=== PATIENT | female | born 1995 | race Caucasian/White ===

== ENCOUNTER 2017-02-25 21:59 | Emergency (ER) | payer SELFPAY ==
[~2017-02-25] VITALS: Ht 172.7 cm; Wt 97.0 kg
[2017-02-25 22:05] VITALS: BP 121/85
[2017-02-25] MEDS ORDERED: KETOROLAC 30 MG/1 ML ONE (22:54)
[2017-02-25] MEDS ORDERED: KETOROLAC 30 MG/1 ML IM ONE (23:00)
== END 2017-02-26 00:01 | disposition home or self-care (01) ==
LOC: ED 23:54
DX: S39.012A Strain of muscle, fascia and tendon of lower back, initial encounter (principal); S29.012A Strain of muscle and tendon of back wall of thorax, initial encounter; X58.XXXA Exposure to other specified factors, initial encounter; Y93.89 Activity, other specified; Y92.89 Other specified places as the place of occurrence of the external cause; Y99.8 Other external cause status
CPT/HCPCS: 72110; 72220; 96372; 99284; J1885